=== PATIENT | female | born 1960 | race Caucasian/White ===

== ENCOUNTER 2020-02-12 11:15 | Outpatient (CLI) | payer SELFPAY ==
--- NOTE | 2020-02-12 11:59 | XR_ITS ---
WS: [id number] XR knee RT 4V [id number] REASON FOR EXAM: KNEE PAIN,RIGHT FINDINGS: The meniscal spaces are normal. The patella tibial space is normal. The patellofemoral articulation is normal. The femur, tibia, fibula, and patella show no fractures. XR/XR knee RT 4V [id number] IMPRESSION: Negative right knee.
== END 2020-02-12 11:16 | disposition home or self-care (01) ==
PROVIDERS: Family Provider Nurse Practitioner Family; PCP Nurse Practitioner Family; Visit Provider Nurse Practitioner Family
DX: M25.561 Pain in right knee (principal)
CPT/HCPCS: 73564

== ENCOUNTER 2021-09-10 08:46 | Outpatient (CLI) | payer OTHER, SELFPAY ==
--- NOTE | 2021-09-10 08:53 | MM_ITS ---
WS: [id number] BILATERAL DIGITAL SCREENING MAMMOGRAPHY WITH CAD CLINICAL INFORMATION: SCREENING HISTORY: Screening mammogram. No current complaints. COMPARISON: 018 TECHNIQUE: Bilateral CC and MLO views. FINDINGS: Scattered fibroglandular densities bilaterally. 5 mm ovoid asymmetry inner right breast along the pos terior nipple line posterior depth. This is more prominent compared to previous and recommend spot co mpression views and ultrasound for further evaluation. Left breast is unchanged. [place] centered calc ifications. MM/[place] [id number] IMPRESSION: BI-RADS: 0-Incomplete: Need additional imaging evaluation FOLLOW UP: Need Additional Imaging Recommend RIGHT breast diagnostic mammography and ultrasound.
== END 2021-09-10 08:47 | disposition home or self-care (01) ==
LOC: RADSHAW 08:50
PROVIDERS: PCP Nurse Practitioner Family; Visit Provider Nurse Practitioner Family
DX: Z12.31 Encounter for screening mammogram for malignant neoplasm of breast (principal)
CPT/HCPCS: 77067

== ENCOUNTER 2021-10-13 09:24 | Outpatient (CLI) | payer OTHER, SELFPAY ==
--- NOTE | 2021-10-13 09:29 | US_ITS ---
WS: [id number] RIGHT DIGITAL MAMMOGRAPHY WITH CAD CLINICAL INFORMATION: RT BREAST ABNORMAL MAMMOGRAM COMPARISON: September 10, 2021 TECHNIQUE: 3 views of the right breast were obtained. FINDINGS: Scattered fibroglandular densities of the right breast. 5 mm ovoid asymmetry inner right breast along the posterior nipple line posterior depth is unchanged. Ultrasound is pending. ULTRASOUND BREAST RIGHT TECHNIQUE: Ultrasound right breast focused area of concern. CLINICAL INFORMATION: RT BREAST ABNORMAL MAMMOGRAM FINDINGS: Ultrasound right breast 11:00 position 2 cm from the nipple. There is a small simple cyst measuring 7 .0 x 5.0 x 4.3 mm. This has a benign appearance. No other suspicious abnormality. Recommend return to annual screening mammography. US/US breast RT limited* [id number] IMPRESSION: BI-RADS: 2-Benign FOLLOW UP: 1 Year Follow-up Recommend return to annual screening mammography.
== END 2021-10-13 09:25 | disposition home or self-care (01) ==
LOC: RADSHAW 09:26
PROVIDERS: PCP Nurse Practitioner Family; Visit Provider Nurse Practitioner Family
DX: R92.8 Other abnormal and inconclusive findings on diagnostic imaging of breast (principal)
CPT/HCPCS: 76642; 77065

== ENCOUNTER 2021-10-15 07:12 | Outpatient (CLI) | payer SELFPAY ==
--- NOTE | 2021-10-15 | US_ITS ---
WS: [id number] ULTRASOUND ABDOMEN LIMITED CLINICAL INFORMATION: ELEVATED BILIRUBIN, ABDOMINAL PAIN, RUQ COMPARISON: None. FINDINGS: Technically difficult examination Liver Size: Normal. Craniocaudal length: 13.3 cm. Echogenicity: Diffuse fatty infiltration of the liver. Surface nodularity: None. Mass (size and location): None. Bile ducts Intrahepatic ducts: Normal. Common bile duct diameter: 0.4 cm. Gallbladder Normal. Gallstones: None. Gallbladder sludge: None. Gallbladder wall thickening: None. Pericholecystic fluid: None. Sonographic Akhtar sign: Absent. Pancreas Normal as visualized. Right kidney: Normal. Hydronephrosis: None. Size: 9.8 cm x 5.7 cm x 6.1 cm. Abdominal aorta and IVC Visualized portions are normal. Ascites: None. US/US abdomen limited [id number] IMPRESSION: 1. Diffuse fatty infiltration of the liver. 2. Normal gallbladder. 3. No hydronephrosis in right kidney.
== END 2021-10-15 07:13 | disposition home or self-care (01) ==
PROVIDERS: PCP Nurse Practitioner Family; Visit Provider Family Medicine
DX: R10.11 Right upper quadrant pain (principal); K76.0 Fatty (change of) liver, not elsewhere classified
CPT/HCPCS: 76705; 93976

== ENCOUNTER 2023-12-21 13:26 | Emergency (ER) | payer MEDICAID, SELFPAY ==
[2023-12-21 13:38] VITALS: BP 180/113; PULSE 118; RESP 24; TEMP 37.1; O2SAT 99; BMI 25.3
[2023-12-21 14:45] LABS: Basophils # 0.1 10^3/uL (0.0-0.1); Basophils % 0.3 %; Eosinophils % 0.1 %; Hematocrit 46.5 % (36-47); Lymphocytes # 0.6 10^3/uL (0.8-4.8); Lymphocytes % 3.8 %; Mean Corpuscular HGB Conc 34.4 g/dL (30-55); Mean Corpuscular Volume 90.1 fl (85-98); Mean Platelet Volume 8.4 fL (7.4-10.4); Monocytes # 0.5 10^3/uL (0.2-0.9); Neutrophils # 15.01 10^3/uL (1.8-7.7); Neutrophils % 92.3 %; Nucleated Red Blood Cells % 0 %; Platelet Count 340 10^3/cmm (157-399); Red Blood Count 5.16 10^6/uL (3.85-5.65); Red Cell Distribution Width 11.9 % (12.1-15.1); White Blood Count 16.26 10^3/uL (3.29-11.43)
[2023-12-21 15:03] LABS: Alanine Aminotransferase 15 U/L (0-33); Albumin Level 4.5 g/dL (3.5-5.2); Alkaline Phosphatase 103 U/L (35-105); Anion Gap 18.5 (5-19); Aspartate Amino Transferase 27 U/L (0-32); Blood Urea Nitrogen 13 mg/dL (8-23); Calcium 10.2 mg/dL (8.5-10.5); Carbon Dioxide 20 mmol/L (22-29); Chloride 103 mmol/L (98-107); Globulin 3.7 g/dL (1.3-4.6); Glomerular Filtration Rate 72.2 mL/min (90-130); Glucose 171 mg/dL (65-115); Osmolality Calculated 290 mOsm/kg (285-295); Potassium 3.5 mmol/L (3.5-5.1); Sodium 138 mmol/L (136-145); Total Bilirubin 1.2 mg/dL (0.15-1.2); Total Protein 8.2 g/dL (6.6-8.7)
--- NOTE | 2023-12-21 16:38 | CTR_ITS ---
PROCEDURE INFORMATION: Exam: CT Abdomen And Pelvis Without Contrast Exam date and time: 12/21/2023 5:31 PM Age: 63 years old Clinical indication: Abdominal pain; Flank; Left; Additional info: L flank pain TECHNIQUE: Imaging protocol: Computed tomography of the abdomen and pelvis without contrast. Radiation optimization: All CT scans at this facility use at least one of these dose optimization techniques: automated exposure control; mA and/or kV adjustment per patient size (includes targeted exams where dose is matched to clinical indication); or iterative reconstruction. COMPARISON: CT pelvis w con* [id number] 10/25/2017 10:11 AM RADIATION DOSE METRICS: Total DLP (mGy-cm): 614 FINDINGS: Lungs: Subsegmental bibasilar atelectasis. The visualized lung bases are otherwise clear. Calcified left lower lobe granuloma. Diaphragm: No evidence of diaphragmatic defect. Liver: Hepatic steatosis. No focal hepatic lesion within limitations of a noncontrast exam. Gallbladder and bile ducts: Gallbladder is unremarkable. No evidence of intra-hepatic or extra-hepatic biliary dilatation. Pancreas: Grossly unremarkable. Spleen: Grossly unremarkable. Adrenal glands: Grossly unremarkable. Kidneys and ureters: Mild-moderate left-sided hydronephrosis secondary to an obstructive 4 mm distal ureteral stone. No right-sided hydronephrosis or stone. There is right renal parenchymal scarring. Additional nonobstructive renal stones bilaterally measuring up to 3 mm. Stomach and bowel: No evidence of bowel obstruction or perienteric inflammatory changes. Appendix: Normal appendix. Intraperitoneal space: No evidence of free air or fluid collection. Vasculature: No evidence of aneurysmal dilitation of abdominal aorta. Lymph nodes: No evidence of adenopathy. Urinary bladder: Grossly unremarkable. Reproductive: Status post hysterectomy. Bones/joints: No evidence of acute fracture or aggresive osseous lesion. Severe right L4-L5 facet arthrosis. Soft tissues: No evidence of fluid collection or hematoma in the superficial soft tissues. CT/CT kidney stone [id number] IMPRESSION: 1. Mild-moderate left-sided hydronephrosis secondary to an obstructive 4 mm distal ureteral stone.
--- NOTE | 2023-12-21 16:39 | ED_ITS ---
HPI - Back Pain/Injury 2 General: Chief Complaint: Back Pain/Injury Stated Complaint: left side body aches Time Seen by Provider: 12/21/23 16:32 Source: patient Mode of arrival: ambulatory Limitations: no limitations History of Present Illness: Patient is a 63-year-old female presents to ED today with a complaint of left flank pain radiating around to her abdomen. She states symptoms started earlier this morning and began rather acutely which made her concerned for possibly a kidney stone. Patient states she has had kidney stones previously. She does not complain of hematuria, dysuria, frequency, urgency. She states she feels nauseous but has not had any episodes of vomiting. Bowel movements have been normal. No fevers. No rash. MD elicited complaint: back pain Pertinent past history: kidney stones Onset (ago): hour(s) Timing: constant Severity: severe Pain scale (0-10): 10 Quality: sharp and stabbing Location: left flank Radiation: abdomen Exacerbating factors: none Relieving factors: none Associated symptoms: Reports abdominal pain and nausea; Deny chills, dysuria, fatigue, fever(s), hematuria, syncope, urinary urgency or vomiting Work related injury: No Review of Systems 2 Const: Denies: fever(s), chills, body aches, fatigue or malaise Eyes: Denies: change in vision or blurry vision Card: Denies: chest pain, palpitations, irregular heart rhythm, lightheadedness, syncope or dyspnea on exertion Resp: Denies: dyspnea, productive cough or pain on inspiration GI: Reports: abdominal pain and nausea; Denies: vomiting, heartburn or diarrhea : Reports: flank pain (left); Denies: difficulty voiding, dysuria, urinary frequency, urinary urgency, urinary hesitancy or hematuria Musc: Reports: back pain; Denies: neck pain, extremity pain, extremity swelling or joint pain Skin/Breast: Denies: rash Neuro: Denies: headache(s), numbness in extremities, weakness in extremities or sensory changes Physical Exam 2 Const: COMMON NORMALS: average body habitus, patient oriented x3, no limitations, healthy appearing, alert and well nourished GENERAL APPEARANCE: cooperative and in distress (appears uncomfortable) HENMT: COMMON NORMALS: normocephalic and atraumatic HEAD & SCALP: normal to inspection, normocephalic and atraumatic Neck/C-Spine: COMMON NORMALS: full ROM, no lymphadenopathy, supple and no meningeal signs Chest: COMMONS NORMALS: normal inspection of the chest Resp: COMMON NORMALS: normal respiratory effort and clear to auscultation bilaterally AUSCULTATION: clear to auscultation bilaterally Cardio: COMMON NORMALS: regular rhythm RATE: tachycardic RHYTHM: regular rhythm GI: COMMON NORMALS: Normal to inspection, nondistended, normoactive bowel sounds present, Soft to palpation, No hepatosplenomegaly present and no masses INSPECTION: Yes normal to inspection AUSCULTATION: Yes normoactive bowel sounds PALPATION: Yes Soft to palpation, Yes Tenderness to palpation present (GI) (L lower abdomen), No Guarding due to palpation present (GI), No Rigid due to palpation and Yes No hepatosplenomegaly present : BLADDER/KIDNEY EXAM: Yes CVA tenderness on the left Back/Pelvis: COMMON NORMALS: thoracic and lumbar spine normal to inspection GENERAL BACK: Yes CVA tenderness Extremity: COMMON NORMALS: normal to inspection Neuro: COMMON NORMALS: patient oriented x3 SENSORIUM/ORIENTATION: Yes alert MENINGEAL SIGNS: Yes no meningeal signs Skin: COMMON NORMALS: no rashes or lesions noted GENERAL SKIN EXAM: no rashes or lesions noted Course 2 Vital Signs: Vital signs: Vital Signs Temperature 98.8 F 12/21/23 13:38 Pulse Rate 96 12/21/23 17:12 Respiratory Rate 17 12/21/23 17:01 Blood Pressure 196/112 12/21/23 17:12 Pulse Oximetry 99 12/21/23 17:12 Oxygen Delivery Me thod Room Air 12/21/23 17:12 MDM - Back Pain/Injury Medical Decision Making Patient here for acute left sided flank pain radiating around into her abdomen. She has a history of kidney stones. Workup today showing a distal ureter 4 mm stone with mild to moderate left-sided hydronephrosis. Pain was controllable here. Blood work showing a mild white count at 16.2. There is no evidence for infection on her UA. Patient will be discharged home with urinary strainer, pain/nausea medications, and Flomax. Case management will set her up with a follow-up urology appointment. Strict return ED precautions given. Medical Records I reviewed the patient's medical records. Labs I reviewed the patient's lab results. 12/21/23 14:27 12/21/23 14:27 Radiology Impressions Abdomen/Pelvis CT 12/21/23 16:38 IMPRESSION: 1. Mild-moderate left-sided hydronephrosis secondary to an obstructive 4 mm distal ureteral stone. Laboratory Results WBC 16.26 10^3/uL (3.29-11.43) H 12/21/23 14:27 RBC 5.16 10^6/uL (3.85-5.65) 12/21/23 14:27 Hgb 16.00 g/dL (11.27-16.99) 12/21/23 14:27 Hct 46.5 % (36-47) 12/21/23 14: MCV 90.1 fl (85-98) 12/21/23 14: MCH 31.0 pg (27-33) 12/21/23 14: MCHC 34.4 g/dL (30-55) 12/21/23 14: RDW 11.9 % (12.1-15.1) L 12/21/23 14: Plt Count 340 10^3/cmm (157-399) 12/21/23 14: MPV 8.4 fL (7.4-10.4) 12/21/23 14: Neut % (Auto) 92.3 % 12/21/23 14: Lymph % (Auto) 3.8 % 12/21/23 14: [place] % (Auto) 3.0 % 12/21/23 14: Eos % (Auto) 0.1 % 12/21/23 14: Baso % (Auto) 0.3 % 12/21/23 14: Neut # (Auto) 15.01 10^3/uL (1.8-7.7) H 12/21/23 14:27 Lymph # (Auto) 0.6 10^3/uL (0.8-4.8) L 12/21/23 14:27 [place] # (Auto) 0.5 10^3/uL (0.2-0.9) 12/21/23 14: Eos # (Auto) 0.0 10^3/uL (0.0-0.8) 12/21/23 14: Baso # (Auto) 0.1 10^3/uL (0.0-0.1) 12/21/23 14:27 Nucleated RBC % (auto) 0 % 12/21/23 14:27 Nucleated RBCs # 0.0 /100WBC 12/21/23 14:27 Sodium 138 mmol/L (136-145) 12/21/23 14:27 Potassium 3.5 mmol/L (3.5-5.1) 12/21/23 14:27 Chloride 103 mmol/L (98-107) 12/21/23 14:27 Carbon Dioxide 20 mmol/L (22-29) L 12/21/23 14:27 Anion Gap 18.5 (5-19) 12/21/23 14:27 BUN 13 mg/dL (8-23) 12/21/23 14:27 Creatinine 0.8 mg/dL (0.5-0.9) 12/21/23 14:27 GFR Calculation 72.2 mL/min (90-130) L 12/21/23 14:27 Glucose 171 mg/dL (65-115) H 12/21/23 14:27 Calculated Osmolality 290 mOsm/kg (285-295) 12/21/23 14:27 Calcium 10.2 mg/dL (8.5-10.5) 12/21/23 14:27 Total Bilirubin 1.2 mg/dL (0.15-1.2) 12/21/23 14:27 AST 27 U/L (0-32) 12/21/23 14:27 ALT 15 U/L (0-33) 12/21/23 14:27 Alkaline Phosphatase 103 U/L (35-105) 12/21/23 14:27 Total Protein 8.2 g/dL (6.6-8.7) 12/21/23 14:27 Albumin 4.5 g/dL (3.5-5.2) 12/21/23 14:27 Globulin 3.7 g/dL (1.3-4.6) 12/21/23 14:27 Urine Color Yellow (Yellow) 12/21/23 17:07 Urine Appearance Clear (CLEAR) 12/21/23 17:07 Urine pH 7 (5-7) 12/21/23 17:07 Ur Specific [place] 1.015 (1.005-1.030) 12/21/23 17:07 Urine Protein 3+ (Negative) H 12/21/23 17:07 Urine Glucose (UA) 1+ (Normal) H 12/21/23 17:07 Urine Ketones Negative (Negative) 12/21/23 17:07 Urine Blood 2+ (Negative) H 12/21/23 17:07 Urine Nitrate Negative (Negative) 12/21/23 17:07 Urine Bilirubin Neg (Negative) 12/21/23 17:07 Urine Urobilinogen Norm mg/dL (Negative) 12/21/23 17:07 Ur Leukocyte Esterase Negative (Negative) 12/21/23 17:07 Amorphous Sediment Not Reportable 12/21/23 17:07 All radiology interpretation(s) finalized by discharge Discharge Plan Discharge Patient Disposition: Home Clinical Impression: Calculus of distal left ureter Condition: Stable Prescriptions: New hydrocodone-acetaminophen 5-325 mg tablet 1 tab PO Q6H PRN (Reason: pain) Qty: 14 0RF Flomax 0.4 mg capsule 0.4 mg PO DAILY Qty: 10 0RF ondansetron 4 mg tablet,disintegrating 4 mg PO Q8H PRN (Reason: nausea and vomiting) Qty: 14 0RF Discharge Orders: Discharge ED (Routine); Ordered 12/21/23 Ordered By: Akila Vizcarra Referrals: Edyta Arango, MAJOR CASE DETECTIVE [Primary Care Provider] - Patient Instructions: Ureteral Stones (ED), Opioid Safety, Pain Management Activity Restrictions/Additional Instructions: As we discussed case management should be contacting you shortly to set you up with your follow-up with urology appointment. As we discussed you need to return to the emergency department if pain cannot be controlled, you have repetitive episodes of vomiting, fevers, generally feeling worse or unwell, or any other concerns you may have. I hope you begin to feel better soon. Coding Level of Care Code ED [employer] Worker for Erin Bustillo
[2023-12-21 17:01] VITALS: RESP 17; O2SAT 92
[2023-12-21] MEDS: ondansetron 2 mg/ML SDV 2 mL 4 MG IVP (17:01)
[2023-12-21] MEDS: morphine 4 mg/mL SDV 1 mL IVP ×2 (17:01→18:44)
[2023-12-21] MEDS: sodium chloride 0.9% 1,000 ML 999 ML IV (17:07)
[2023-12-21] MEDS: ketorolac 30 mg/mL INJ 15 MG IVP ×2 (17:07→18:45)
[2023-12-21 17:12] VITALS: BP 196/112; PULSE 96; O2SAT 99
[2023-12-21 18:04] LABS: Protein Urine 3+ (Negative); Specific Gravity, Urine 1.015 (1.005-1.030); Urine Appearance Clear (CLEAR); Urine Color Yellow (Yellow); pH Urine 7 (5-7)
[2023-12-21 18:05] LABS: Add Urine Microscopic? YES; Bilirubin Urine Neg (Negative); Blood Urine 2+ (Negative); Glucose Urine UA 1+ (Normal); Ketones Urine Negative (Negative); Leukocyte Esterase Urine Negative (Negative); Nitrate Urine Negative (Negative); Urobilinogen Urine Norm (Negative)
[2023-12-21 18:43] LABS: RBC Urine 25-40 /hpf (0-2); Squamous Epithelial Cell Urine 0-4 /hpf (0-5); WBC Urine 0-4 /hpf (0-5)
[2023-12-21] MEDS: HYDROcodone-acetaminophen 5-325 mg Tablet 1 TAB PO (18:43)
[2023-12-21 18:44] VITALS: O2SAT 96
[2023-12-21 18:44] LABS: Add Urine Culture? Yes; Hyaline Casts Urine RARE /lpf; Mucus Urine TRACE /hpf; Transitional Epi Cells Urine RARE /hpf
--- NOTE | 2023-12-23 10:14 | DCPLANNER ---
I attempted to call patient on 12/23/23 at 1018 am. The number on patients chart [phone] is no longer in service. I also called the number of [phone] and it is stating this number is no longer accepting calls at this time.
--- NOTE | 2024-01-03 10:57 | DCPLANNER ---
I attempted to call patient on 12/23/23 at 1019 am and both phone numbers on the patients chart is no longer in service. I attempted to call patient again on 01/03/24 at 1058 am and both numbers are still no longer in service.
== END 2023-12-21 19:02 | disposition home or self-care (01) ==
PROVIDERS: Emergency Provider Physician Assistant; PCP Nurse Practitioner Family
DX: N13.2 Hydronephrosis with renal and ureteral calculous obstruction (principal)
CPT/HCPCS: 36415; 74176; 80053; 81001; 85025; 87086; 96361; 96374; 96375; 96376; 99285; J1885; J2270; J2405; J7030

== ENCOUNTER → 2024-07-28 07:37 | Outpatient (BNVA) | payer MEDICAID, SELFPAY | PROVIDERS: PCP Nurse Practitioner Family; Referring Provider Family Medicine; Visit Provider Surgery | DX: Z12.11 Encounter for screening for malignant neoplasm of colon (principal) | CPT/HCPCS: 99024; 99204 ==

== ENCOUNTER 2024-08-28 08:01 | Day surgery (SDC) | payer MEDICARE, MEDICAID, SELFPAY ==
[2024-08-28 06:40] VITALS: BMI 24.7
[2024-08-28 08:25] VITALS: BP 145/85; PULSE 69; RESP 18; TEMP 36.9; O2SAT 98
[2024-08-28] MEDS: sodium chloride 0.9% 1,000 ML 30 ML IV (08:35)
--- NOTE | 2024-08-28 09:46 | ANES.PREANE2 ---
Pre-Anesthetic Assessment Height/Weight: Height 1.7 m Weight 71.668 kg Temp Pulse Resp BP Pulse Ox O2 Del Method 98.4 F 69 18 145/85 98 Room Air 08/28/24 08:25 08/28/24 08:25 08/28/24 08:25 08/28/24 08:25 08/28/24 08:25 08/28/24 08:25 Preop Diagnosis: Screening Operation Date: 08/28/24 09:45 Proposed Procedures p Colonoscopy - 96026, [id number], Z12.11(Not Applicable) - Gian Madison, DO Was Beta Megan taken within 24 hours: N/A Was Clonidine taken within 24 hours: N/A Last intake: Intake Last Liquid Date 08/27/24 Last Liquid Time 20:00 Last Solid Date 08/26/24 Last Solid Time 18:00 Social No alcohol and No tobacco Exam alert, oriented x 3, clear to auscultation bilaterally and regular rate & rhythm Airway Submandibular: within normal limits Cervical ROM: within normal limits Mallampati: Class II Dentition: full History/ROS No significant history except as noted and No significant complaints Pulmonary None reported CV/HEM None reported None reported Hepatic None reported GI None reported Metabolic None reported Ozempic last taken 1 week ago Musc/skel None reported Neuropsych None reported Anesthetic Plan ASA status: 2 Anesthesia: MAC Medications/Allergies Home Medications Medication Instructions Recorded Confirmed Last Taken Type amlodipine 5 mg tablet 5 mg PO DAILY 08/28/24 08/28/24 08/28/24 History semaglutide 0.25 mg or 0.5 mg (2 0.5 mg SUBCUT .WKLY 08/28/24 08/28/24 08/21/24 History mg/1.5 mL) subcutaneous pen injector sumatriptan succinate 6 mg/0.5 mL 6 mg SUBCUT PRN PRN Migraine 08/28/24 08/28/24 08/26/24 History subcutaneous pen injector Headache trazodone 100 mg tablet 100 mg PO BEDTIME 08/28/24 08/28/24 08/26/24 History Allergies Allergy/AdvReac Type Severity Reaction Status Date / Time No Known Allergies Allergy Verified 08/28/24 08:24 Current Medications Generic Name Dose Route Start Last Admin Trade Name Freq PRN Reason Stop Dose Admin Sodium Chloride 1,000 mls @ 30 mls/hr 08/28/24 07:15 08/28/24 08:35 Sodium Chloride 0.9% IV 08/29/24 07:14 30 mls/hr .Q24H COCO Administration PFSH Anesthesia Social History Smoking and tobacco/nicotine status: never used tobacco/nicotine Data Anesthesia Cardiac Studies: No Data to Display
--- NOTE | 2024-08-28 10:12 | PM.HP ---
Providers/Chief Complaint Primary Care Provider: Edyta Arango Chief Complaint: Z12.11 History of Present Illness Mandy Bassett is a 64 year old female Review of Systems General: Reports: 10 or more systems reviewed and unremarkable except in HPI and below Medications/Allergies Home Medications Medication Instructions Recorded Confirmed Last Taken Type amlodipine 5 mg tablet 5 mg PO DAILY 08/28/24 08/28/24 08/28/24 History semaglutide 0.25 mg or 0.5 mg (2 0.5 mg SUBCUT .WKLY 08/28/24 08/28/24 08/21/24 History mg/1.5 mL) subcutaneous pen injector sumatriptan succinate 6 mg/0.5 mL 6 mg SUBCUT PRN PRN Migraine 08/28/24 08/28/24 08/26/24 History subcutaneous pen injector Headache trazodone 100 mg tablet 100 mg PO BEDTIME 08/28/24 08/28/24 08/26/24 History Allergies Allergy/AdvReac Type Severity Reaction Status Date / Time No Known Allergies Allergy Verified 08/28/24 08:24 PFSH Acute PFSH: Social History Smoking and tobacco/nicotine status: never used tobacco/nicotine Vitals/I&O/Wt Last Vital Signs Temp 98.4 F 08/28/24 08:25 Pulse 69 08/28/24 08:25 Resp 18 08/28/24 08:25 BP 145/85 08/28/24 08:25 Pulse Ox 98 08/28/24 08:25 O2 Del Method Room Air 08/28/24 08:25 Weight last 48 hrs Weight 158 lb A&P Assessment and plan (1) Colon cancer screening: Plan Screening colonoscopy The risks and benefits of the procedure, including bleeding, infection, intestinal perforation requiring surgery, missed lesion were explained to the patient. The patient is understanding of the risks and wishes to proceed. Attestations Medical Necessity Statement*: Home Coding Level of Care Code Acute Code for Chg Fwd Diagnoses Colon cancer screening Z12.11
[2024-08-28 10:32] VITALS: BP 138/83; PULSE 87; RESP 16; TEMP 36.4; O2SAT 97
[2024-08-28 10:41] VITALS: BP 141/79; PULSE 77; RESP 16; O2SAT 97
--- NOTE | 2024-08-28 11:00 | ANE.PACU2 ---
Inpatient post-anesthesia follow up: Airway intact: Yes Vital signs: Temperature 97.5 F Pulse Rate 77 Respiratory Rate 16 Blood Pressure 141/79 Pulse Oximetry 97 Oxygen Delivery Me thod Room Air Oxygen Flow Rate Fraction of Inspir ed Oxygen Hydration adequate: Yes Nausea and vomiting: No Pain level: 1 Mental status: Baseline
== END 2024-08-28 11:00 | disposition home or self-care (01) ==
PROVIDERS: PCP Nurse Practitioner Family; Visit Provider Surgery
PROC: 0DJD8ZZ Inspection of Lower Intestinal Tract, Via Natural or Artificial Opening Endoscopic (ICD-10-PCS; CPT 45378; principal; 2024-08-28 09:45)
DX: Z12.11 Encounter for screening for malignant neoplasm of colon (principal); D12.2 Benign neoplasm of ascending colon
CPT/HCPCS: 45385; 88305; J2704; J7030

== ENCOUNTER 2024-09-06 12:59 | Outpatient (CLI) | payer MEDICARE, MEDICAID, SELFPAY ==
--- NOTE | 2024-09-06 13:03 | MM_ITS ---
WS: [id number] BILATERAL 3D TOMOSYNTHESIS DIGITAL SCREENING MAMMOGRAPHY WITH CAD CLINICAL INFORMATION: SCREENING HISTORY: Screening mammogram. No current complaints. COMPARISON: 2020 TECHNIQUE: Bilateral CC and MLO views. FINDINGS: Scattered fibroglandular densities bilaterally. No suspicious focal mass, asymmetry, calcifications, or architectural distortion. No evidence of malignancy. Stable 5 mm ovoid nodule RIGHT breast. Previo usly demonstrated to represent a cyst. Incidental coarse calcifications LEFT breast. MM/MM scr tomosynthesis [id number] IMPRESSION: DENSITY: There are scattered areas of fibroglandular density. BI-RADS: 2 - Benign. FOLLOW UP: 1 Year Follow-up Recommend return to annual screening mammography.
--- NOTE | 2024-09-06 13:03 | XR_ITS ---
WS: [id number] DEXA (DUAL ENERGY X-RAY ABSORPTIOMETRY) Bone mineral density was performed using a Metabolon machine. HISTORY: POST MENAPAUSAL COMPARISON: None available. Lumbar spine BMD (L1-L4): 0.952 g/cm2 T score: -1.9 Z score: -0.6 Total hip BMD: Left: 0.824 g/cm2. T score: -1.5 Z score: -0.4 Right: 0.858 g/cm2. T score: -1.2 Z score: -0.2 10 year probability of a major osteoporotic fracture is 12.5%. XR/XR DEXA axial skeleton* [id number] IMPRESSION: OSTEOPENIA based upon the WHO classification for females.
== END 2024-09-06 13:00 | disposition home or self-care (01) ==
LOC: RAD 13:00
PROVIDERS: PCP Nurse Practitioner Family; Visit Provider Family Medicine
DX: Z12.31 Encounter for screening mammogram for malignant neoplasm of breast (principal); Z78.0 Asymptomatic menopausal state; M85.80 Other specified disorders of bone density and structure, unspecified site
CPT/HCPCS: 77063; 77067; 77080

== ENCOUNTER → 2024-09-11 14:38 | Outpatient (BNVA) | payer MEDICARE, MEDICAID, SELFPAY | PROVIDERS: PCP Nurse Practitioner Family; Visit Provider Surgery | DX: Z09 Encounter for follow-up examination after completed treatment for conditions other than malignant neoplasm (principal); D37.4 Neoplasm of uncertain behavior of colon | CPT/HCPCS: 99214 ==

== ENCOUNTER 2025-09-25 09:02 | Outpatient (CLI) | payer MEDICARE, SELFPAY ==
--- NOTE | 2025-09-25 09:09 | MM_ITS ---
WS: [id number] BILATERAL 3D TOMOSYNTHESIS DIGITAL SCREENING MAMMOGRAPHY WITH CAD CLINICAL INFORMATION: SCREENING HISTORY: Screening mammogram. No current complaints. COMPARISON: 2023 TECHNIQUE: Bilateral CC and MLO views. FINDINGS: The breasts are composed of heterogeneous fibroglandular density tissue, which can limit the detection of small underlying mass lesions. No suspicious mass, asymmetry, calcifications, or architectural distortion. No evidence of malignancy. Stable 4 mm nodule RIGHT breast. Few incidental calcifications LEFT breast. Vascular calcification. MM/MM [facility] tomosynthesis [id number] IMPRESSION: DENSITY: The breasts are heterogeneously dense, which may obscure small masses. BI-RADS: 2 - Benign FOLLOW UP: 1 Year Follow-up Recommend return to annual screening mammography.
== END 2025-09-25 09:03 | disposition home or self-care (01) ==
LOC: RAD 09:04
PROVIDERS: PCP Nurse Practitioner Family; Visit Provider Nurse Practitioner Family
DX: Z12.31 Encounter for screening mammogram for malignant neoplasm of breast (principal); R92.333 Mammographic heterogeneous density, bilateral breasts; R92.323 Mammographic fibroglandular density, bilateral breasts; N63.10 Unspecified lump in the right breast, unspecified quadrant
CPT/HCPCS: 77063; 77067